=== PATIENT | male | born 1975 | race Two or more races ===

== ENCOUNTER 2019-06-10 10:11 | Emergency (ER) | payer SELFPAY ==
[~2019-06-10] VITALS: Ht 175.3 cm; Wt 91.0 kg
[2019-06-10] MEDS ORDERED: LORAZEPAM 1MG TABLET PO ONE (10:30)
[2019-06-10 12:46] LABS: BASOPHILS % 0.5 % (0.0-2.0); HEMATOCRIT. 44.1 % (42.0-52.0); HEMOGLOBIN. 14.7 g/dL (14.0-18.0); LYMPHOCYTES % 12.2 % (20.0-50.0); MEAN CORPUSCULAR HEMOGLOBIN 29.4 pg (28.0-32.0); MEAN CORPUSCULAR VOLUME 88.1 fL (80.0-94.0); MEAN PLATELET VOLUME 8.4 fl (7.4-10.4); MONOCYTES % 7.9 % (2.0-8.0); NEUTROPHILS % 79.4 % (40.0-76.0); PLATELET 254 x1000/uL (130-400); RED BLOOD CELL COUNT 5.01 mill/uL (4.7-6.1); RED CELL DISTRIBUTION WIDTH 15.4 % (11.6-14.6)
[2019-06-10 12:51] LABS: CHLORIDE 106 mEq/L (98-107)
[2019-06-10 12:55] LABS: ETHANOL BLOOD < 10 mg/dL
[2019-06-10 15:21] LABS: *AMPHETAMINES SCREEN URINE PRESUMTIVE POSITIVE (NEGATIVE); *BARBITURATES SCREEN URINE NEGATIVE (NEGATIVE); *BENZODIAZEPINES SCREEN URINE NEGATIVE (NEGATIVE); *COCAINE SCREEN URINE NEGATIVE (NEGATIVE); CANNABINOID URINE SCREEN NEGATIVE (NEGATIVE); METHADONE URINE SCREEN NEGATIVE (NEGATIVE); OPIATES URINE SCREEN NEGATIVE (NEGATIVE); PHENCYCLIDINE URINE SCREEN NEGATIVE (NEGATIVE)
[2019-06-11] MEDS ORDERED: HALOPERIDOL LACTATE 5MG/ML VIAL IM ONE
[2019-06-11 16:30] VITALS: BP 125/78
== END 2019-06-11 16:45 | disposition home or self-care (01) ==
LOC: ER 10:11
DX: R41.82 Altered mental status, unspecified (principal); R45.851 Suicidal ideations; F15.10 Other stimulant abuse, uncomplicated; E11.9 Type 2 diabetes mellitus without complications; I10 Essential (primary) hypertension; Z01.818 Encounter for other preprocedural examination
CPT/HCPCS: 36415; 80048; 80305; 80307; 80320; 80329; 85025; 96372; 99284; J1630; G0480